=== PATIENT | female | born 1945 | race Caucasian/White ===

== ENCOUNTER 2017-01-13 20:34 | Observation (INO) | payer OTHER, BC ==
[~2017-01-13] VITALS: Ht 157.5 cm; Wt 67.7 kg
[~2017-01-13 20:34] MED LIST: ALLERGY RELIE15.8 ML BOTH NARES; COZAAR50 MG PO; HYDROCHLOROTHIA25 MG PO; LEVO-T50 MCG PO; OXYCODONE HCL5 MG PO; PRAVACHOL40 MG PO; SIMBRINZA 1%-0.28 ML RIGHT EYE; SYMBICORT60 INHALAT IH; VENTOLIN IH; XALATAN2.5 ML RIGHT EYE; XARELTO10 MG PO
[2017-01-13 21:26] LABS: HEMATOCRIT 38.8 % (36.0-46.0); MCH 32.2 PG (29.0-34.0); MCHC 33.8 G/DL (30.0-36.0); MCV 95.3 FL (83-99); PLATELET COUNT 319 K/uL (156-360); RBC DIS.WIDTH-CV 13.5 % (11.8-14.6); RED BLOOD COUNT 4.07 M/uL (3.80-5.20); WHITE BLOOD COUNT 11.3 K/uL (4.1-10.2)
[2017-01-13 21:52] LABS: CHLORIDE 106 mEq/L (99-109); POTASSIUM 3.8 mEq/L (3.7-5.4); SODIUM 141 mEq/L (136-147)
[2017-01-13 21:54] LABS: GLUCOSE 116 mg/dL (70-99)
[2017-01-13 21:55] LABS: ANION GAP 13 MEQ/L (2-14)
[2017-01-13 21:58] LABS: GFR ESTIMATE (CALCULATED) > 59 mL/min/; UREA NITROGEN (BUN) 24 mg/dL (9-23)
[2017-01-13 21:59] LABS: TROP-I INTERPRETATION NEGATIVE; TROPONIN-I < 0.01 ng/mL (0.0-0.30)
[2017-01-14 02:52] VITALS: BP 155/72
[2017-01-14 06:53] LABS: HEMATOCRIT 36.2 % (36.0-46.0); MCH 32.8 PG (29.0-34.0); MCHC 34.5 G/DL (30.0-36.0); MEAN PLAT.VOLUME 9.3 uM^3 (9.5-12.4); PLATELET COUNT 313 K/uL (156-360); RBC DIS.WIDTH-CV 13.4 % (11.8-14.6); RED BLOOD COUNT 3.81 M/uL (3.80-5.20); WHITE BLOOD COUNT 8.2 K/uL (4.1-10.2)
[2017-01-14 07:24] LABS: ANION GAP 14 MEQ/L (2-14); CHLORIDE 104 MEQ/L (99-109); GFR ESTIMATE (CALCULATED) > 59 mL/min/; GLUCOSE 137 mg/dL (70-99); POTASSIUM 4.1 MEQ/L (3.7-5.4); SAMPLE HEMOLYSIS CHECK 0; SAMPLE ICTERIC CHECK 0; SAMPLE LIPEMIA CHECK 0; SODIUM 141 MEQ/L (136-147); UREA NITROGEN (BUN) 18 mg/dL (9-23)
[2017-01-14 08:27] VITALS: BP 142/70
[2017-01-14 08:51] LABS: D-DIMER ELISA 1.78 mg/L FEU (< 0.57)
[2017-01-14] MEDS ORDERED: LEVO-T50 MCG PO (11:28)
[2017-01-14] MEDS ORDERED: HYDROCHLOROTHIA25 MG PO (11:29)
[2017-01-14] MEDS ORDERED: ASCORBIC ACID500 M3 PO (11:29)
[2017-01-14] MEDS ORDERED: SYMBICORT60 INHALAT IH (11:29)
[2017-01-14] MEDS ORDERED: PRAVASTATIN SOD40 MG PO (11:29)
[2017-01-14] MEDS ORDERED: CALCIUM 600 MG1 EACH PO (11:30)
[2017-01-14] MEDS ORDERED: VENTOLIN HFA18 GM IH (11:30)
[2017-01-14] MEDS ORDERED: VITAMIN E100 UNIT PO (11:30)
[2017-01-14 12:00] VITALS: BP 118/58
== END 2017-01-14 14:50 | disposition home or self-care (01) ==
LOC: EME → EDBD 20:34 → EME 20:34 → EDOF 01-14 01:01 → 5WEST 01-14 02:37
PROVIDERS: Emergency Medicine; Hospitalist; Internal Medicine
DX: J45.901 Unspecified asthma with (acute) exacerbation (principal); N17.9 Acute kidney failure, unspecified; E86.0 Dehydration; I10 Essential (primary) hypertension; E03.9 Hypothyroidism, unspecified; E78.5 Hyperlipidemia, unspecified; E78.00 Pure hypercholesterolemia, unspecified; M19.90 Unspecified osteoarthritis, unspecified site; Z86.718 Personal history of other venous thrombosis and embolism; Z96.651 Presence of right artificial knee joint
CPT/HCPCS: 71010; 71275; 80048; 81003; 84484; 85027; 85379; 93005; 94640; 94640 76; 99202; 99281; 99285; G0378; J1644; J2930; J7030